=== PATIENT | female | born 1960 | race Caucasian/White ===

== ENCOUNTER 2019-03-03 05:02 | Inpatient (IN) ==
--- NOTE | 2019-02-12 09:22 | PAT Medication Instructions ---
Medication Instructions Date of Service February 12, 2019 Home Medications albuterol sulfate 1 puff INHALATION Q6H NEEDED cyanocobalamin (vitamin B-12) [Vitamin B-12] 2,500 mcg SUBLINGUAL DAILY fluticasone propionate [Flonase Allergy Relief] 2 spray INTRANASAL QAM pantoprazole [Protonix] 20 mg PO QAM DO NOT take the morning of surgery cyanocobalamin (vitamin B-12) [Vitamin B-12] 2,500 mcg SUBLINGUAL DAILY fluticasone propionate [Flonase Allergy Relief] 2 spray INTRANASAL QAM Take morning of surgery With a small sip of water, OTHERWISE NOTHING TO EAT OR DRINK AFTER MIDNIGHT: albuterol sulfate 1 puff INHALATION Q6H NEEDED (if needed; please bring to hospital) pantoprazole [Protonix] 20 mg PO QAM Take evening before surgery albuterol sulfate 1 puff INHALATION Q6H NEEDED (if needed) Other Notes If you have any questions please call us at [phone] or [phone] or [phone] or [phone]
--- NOTE | 2019-02-12 09:43 | Anesthesiology Consultation ---
Date of Service February 12, 2019 Assessment & Plan (1) Encounter for pre-operative examination: - No previous anesthesia records available Chart Review Chart Review: Acceptable Risk for Surgery (Cleared pending confirmed EKG. ) and Patient seen in Pre Admission Testing Consults Requested none Teaching & Discussion Pre-Anesthesia Teaching/Discussion Notes: Instructed NPO after midnight before surgery, except medications with 15 cc of water. Medication instructions provided according to the PAT guidelines. History Surgery Operation Date: 03/03/19 08:55 Proposed Procedures p Right Total Knee Arthroplasty - Collni Jacobs MD Height/Weight Height: 5 ft 1 in Weight: 55 kg Allergies Allergy/AdvReac Type Severity Reaction Status Date / Time Penicillins Allergy Unknown Rash Verified 02/01/19 08:36 clindamycin Allergy CHEST Verified 02/01/19 08:36 TIGHTNESS nickel Allergy VISION Verified 02/01/19 08:37 DISTURBANCES titanium Allergy PRESSURE Verified 02/01/19 08:39 IN FACE AND EYE Medications Home Medications Medication Instructions Recorded Confirmed Last Taken albuterol sulfate 1 puff INHALATION Q6H PRN 02/01/19 02/01/19 Unknown cyanocobalamin (vitamin B-12) 2,500 mcg SUBLINGUAL DAILY 02/01/19 02/01/19 Unknown [Vitamin B-12] fluticasone propionate [Flonase 2 spray INTRANASAL QAM 02/01/19 02/01/19 Unknown Allergy Relief] pantoprazole [Protonix] 20 mg PO QAM 02/01/19 02/01/19 Unknown Past Medical History Medical History Asthma TRIGGERED BY SEASONAL GERD (gastroesophageal reflux disease) H/O wisdom tooth extraction Osteoarthritis Seasonal allergies Exercise / Class Metabolic Activity II 4-5 Yardwork/Stairs/Walk up hill (Very active. Able to climb FOS. Denies CP or SOB. ) Past Surgical History Surgical History H/O blepharoplasty H/O colonoscopy History of esophagogastroduodenoscopy (EGD) History of partial hysterectomy History of suburethral sling procedure Hx of left cataract extraction Hx of repair of left rotator cuff Hx of repair of right rotator cuff Hx of right cataract extraction Nausea and vomiting after administration of anesthetic agent Past Anesthesia History No Hx of Anesthesia Complications and No Family Hx of Anesthesia Complications History of PONV History of PONV and Hx of Motion Sickness (Car sickness, motion sickness) Social History Smoking Status: Never smoker Do You Dip or Chew Tobacco: No Hx Alcohol Use: Yes Alcohol type: wine alcohol intake frequency: holidays/special occasions only Hx Substance Use: No Review of Systems Patient denies chest pain, shortness of breath, dyspnea on exertion, cough, wheezing, palpitations. +Joint Pain (Knee) +Acid Reflux (controlled with current medications) Physical Exam Vital Signs BP: 96/65 P: 77 R: 16 T: 98.1 SPO2: 97% on RA ENMT Thyromental Distance: > or= 3.5 Finger Breadths (3.5) Mallampati Class: I Neck normal visual inspection and trachea midline; neck extension not limited Respiratory normal respiratory effort Auscultation: lungs clear to auscultation bilaterally Cardiovascular Rate/Rhythm: regular rate and regular rhythm Heart Sounds: no murmur Vessels: no carotid bruit Neurologic moves all extremities Psychiatric Orientation: alert and oriented x 3 Testing Laboratory Results 02/12/19 10:28 02/12/19 10:28 PT 10.4 Seconds (9.0-12.0) 02/12/19 10:28 INR 1.0 (0.9-1.1) 02/12/19 10:28 APTT 25.8 Seconds (21.0-31.0) 02/12/19 10:28 Urine Color Yellow 02/12/19 Unknown Urine Appearance Clear (Clear) 02/12/19 Unknown Urine pH 5.0 (4.5-7.5) 02/12/19 Unknown Ur Specific [place] 1.023 (1.000-1.030) 02/12/19 Unknown Urine Protein Negative (Negative) 02/12/19 Unknown Urine Glucose (UA) Negative (Negative) 02/12/19 Unknown Urine Ketones Negative (Negative) 02/12/19 Unknown Urine Nitrite Negative (Negative) 02/12/19 Unknown Ur Leukocyte Esterase Negative (Negative) 02/12/19 Unknown Blood Type A Positive 02/12/19 10:28 Antibody Screen NEGATIVE 02/12/19 10:28 Electrocardiogram Date: 02/12/19 Findings: + NSR @ (67) Chest X-Ray Date: 02/12/19 Findings: + NAD
--- NOTE | 2019-02-12 11:09 | XRay Report ---
XR chest Pre-admission PA/Lat CLINICAL HISTORY: pat preoperative evaluation COMPARISON STUDY: No previous studies for comparison. FINDINGS: The bones soft tissues and hemidiaphragms are normal. The cardiomediastinal silhouette is n ormal. The lungs are clear. The pulmonary vasculature is normal. IMPRESSION: Negative chest. The above report was generated using voice recognition software. It may contain grammatical, syntax or spelling errors. Electronically signed by: Julio C Bernard M.D. 02/12/2019 11:08 AM
[2019-02-12 12:32] LABS: Basophils # (auto) 0.02 K/uL (0-0.2); Basophils % (auto) 0.2 %; Eosinophils # (auto) 0.21 K/uL (0-0.5); Eosinophils % (auto) 1.9 %; Hematocrit (blood only) 40.5 % (37-47); Hemoglobin 13.5 g/dL (12.0-16.0); Immature Granulocytes # (auto) 0.04 K/uL (0.00-0.02); Immature Granulocytes % (auto) 0.4 %; Lymphocytes # (auto) 0.66 K/uL (1.2-3.4); Lymphocytes % (auto) 5.8 %; Mean Corpuscular Hgb Conc 33.3 g/dL (32-36); Mean Corpuscular Volume 92.7 fL (80-100); Mean Platelet Volume 9.5 fL (7.4-10.4); Monocytes # (auto) 0.79 K/uL (0.11-0.59); Neutrophils # (auto) 9.58 K/uL (1.4-6.5); Neutrophils % (auto) 84.7 %; Platelet Count 143 K/uL (130-400); RDW Coefficient of Variation 13.7 % (11.5-14.5); RDW Standard Deviation 46.3 fL (36.4-46.3); Red Blood Count 4.37 M/uL (4.2-5.4)
[2019-02-12 12:33] LABS: Appearance Urine Clear (Clear); Bilirubin Urine Negative (Negative); Blood Urine Negative (Negative); Color Urine Yellow; Glucose Urine UA Negative (Negative); Ketones Urine Negative (Negative); Leukocyte Esterase Urine Negative (Negative); Nitrite Urine Negative (Negative); Protein Urine Negative (Negative); Specific Gravity Urine 1.023 (1.000-1.030); Urobilinogen Urine Negative (Negative)
[2019-02-12 12:44] LABS: Partial Thromboplastin Time 25.8 Seconds (21.0-31.0); Prothrombin Time 10.4 Seconds (9.0-12.0)
[2019-02-12 12:54] LABS: BUN Creatinine Ratio 26.2 (10-20); Calcium 9.3 mg/dl (8.5-10.1); Est GFR (African American) 97.8; Est GFR (Non-African American) 84.4; Potassium 4.3 mmol/L (3.5-5.1)
--- NOTE | 2019-02-17 19:35 | History and Physical Report ---
DATE OF ADMISSION: 03/03/2019 CHIEF COMPLAINT: Right knee degenerative joint disease. HISTORY OF PRESENT ILLNESS: This 58-year-old white female presents to the office with complaints of right knee pain for the last 10 months. It was mild prior to that. Occasional effusions. Pain is worse with weightbearing. Her worst pain is medial. She denies any instability. No numbness or tingling. Pain is worse with weightbearing and does affect her ADLs. Preoperative imaging has been obtained. She has tried cortisone injections as well as activity modification and oral anti-inflammatories without significant improvement. PAST MEDICAL HISTORY: Significant for actinic keratosis, osteoarthritis, asthma, chronic sinus infection, and hiatal hernia. PREVIOUS SURGERIES: Hysterectomy, bilateral cataract surgery, suburethral sling 2011, bilateral rotator cuff surgeries. FAMILY HISTORY: Significant for stroke and prostate cancer. Father is living. One sister is well. SOCIAL HISTORY: The patient is . 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 No tobacco use, no ETOH use. She has 3 children. ALLERGIES: KNOWN ALLERGY TO PENICILLIN AND AMPICILLIN, WHICH CAUSED A RASH. CLARITIN CAUSED HALLUCINATION AND PARANOIA. CLINDAMYCIN CAUSED CHEST TIGHTNESS. IVP CAUSED A RASH, QUESTIONABLE ALLERGY TO NICKEL. She has had some adverse reactions to dental implants. She is scheduled for nickel testing on 02/19/2019. CURRENT MEDICATIONS: Flonase 50 mcg 1 spray in each nostril daily, Meloxicam 15 mg p.o. daily, Protonix, unknown dose daily, Restasis eyedrops daily. REVIEW OF SYSTEMS: A total of 10 systems are reviewed and are significant only for above stated conditions. PHYSICAL EXAMINATION: GENERAL: Well-developed, well-nourished middle aged white female in no acute distress. Sitting in a chair. Alert and oriented. VITAL SIGNS: Height 156 cm, weight 55 kilos, temperature 98.3 orally, BP 110/78, pulse 92, O2 sat 98% on room air. SKIN: Warm and dry with good turgor. No rashes or lesions. No ecchymosis or erythema. No intraarticular effusion. HEENT: Normocephalic, atraumatic. Eyes PERRLA, EOMI. Nares patent bilaterally without turbinate enlargement. Oropharynx without erythema or exudate. No lesions noted. Uvula midline. Oral mucosa moist. Good dentition. Fillings and caps are noted. HEART: RRR. No MGR. LUNGS: Clear to auscultation bilaterally. No crackles, rhonchi or wheezing. Good air movement. ABDOMEN: Bowel sounds present x4, soft, nontender. No organomegaly. No masses. MUSCULOSKELETAL: Right knee has no intra-articular effusion. She has full terminal extension. Flexion greater than 100 degrees. Strength is 5/5 with fairly good quad tone. She has focal discomfort with palpation over the medial joint space. No lateral joint line pain today. No defect in the patellar tendon or quadriceps tendon. Stable collateral ligaments. Ambulatory with a slightly antalgic gait. NEUROLOGIC: Cranial nerves II through XII are intact. Gross sensation is intact across the lower extremities by soft touch. Peripheral pulses are 2+. DATA: Radiographic imaging previously obtained shows narrowing of the medial joint space with subchondral sclerosis. Periarticular osteophytes are present. MRI previously obtained shows significant articular cartilage loss in the medial compartment. Bone scan also previously obtained shows medial compartment hyperactivity, especially in the proximal tibial plateau medially. IMPRESSION: Right knee degenerative joint disease. PLAN: Postoperative prescriptions for Percocet and Coumadin will be provided at discharge from the hospital. Anticipate discharge to home with home health services or outpatient services. She has an appointment to obtain NICKEL testing to see if an Oxinium implant will need to be used. Preoperative lab work, EKG, and chest x-ray have been ordered. She will see her PCP for medical clearance. She will stop her Meloxicam 5 days prior to surgery. Call with any other concerns. New radiographic images of the knee have been obtained. A prescription for a rolling walker has been provided. Informed written consent to proceed with right knee total knee arthroplasty will be obtained in the morning of surgery. IRVIN
[2019-03-03] MEDS ORDERED: CEFAZOLIN 2000MG 2,000 MG/15 ML SYR IV SCH (06:00)
[2019-03-03] MEDS ORDERED: TRANEXAMIC ACID 1,000 MG **IV Pre-op IV SCH (06:00)
[2019-03-03] MEDS ORDERED: SCOPOLAMINE 1.5 MG TDSY TD SCH (06:00)
[2019-03-03] MEDS ORDERED: LR 60ML/HR IV SCH (06:00)
[2019-03-03] MEDS ORDERED: ROPIVACAINE 0.5% HCL/PF 150 MG, BUPIVACAINE 0.5% MPF 30 ML, EPINEPHrine 0.15 MG, Ketoro... INFIL SCH (06:00)
[2019-03-03] MEDS ORDERED: LR 500ML BOLUS, THEN 15ML/HR IV SCH (06:00)
[2019-03-03] MEDS ORDERED: BUPIVACAINE 0.5 % 5 MG/1 ML PF 10ML VIAL ONE (06:29)
[2019-03-03] MEDS ORDERED: BUPIVACAINE 0.25% 30 ML VIAL ONE (06:29)
[2019-03-03] MEDS ORDERED: ePHEDrine sulfate 50 MG/ML AMP IV PRN (06:31)
[2019-03-03] MEDS ORDERED: ATROPINE SULFATE 0.1 MG/ML 10ML SYR IV PRN (06:31)
[2019-03-03] MEDS ORDERED: ONDANSETRON INJ 2 MG/ML 2 ML VIAL IV PRN ×2 (06:31→09:38)
[2019-03-03] MEDS ORDERED: PROMETHAZINE HCL 12.5 MG in SODIUM CHLORIDE 0.9% 50 ML IV PRN (06:31)
[2019-03-03] MEDS ORDERED: ORTHO JOINT ANESTHETIC ONE (06:36)
--- NOTE | 2019-03-03 06:38 | History & Physical Bridge Note ---
Date of Service March 03, 2019 History & Physical Bridge Note I have examined the patient, reviewed the History & Physical and in the interval since the performance of the History & Physical I have noted the following changes of clinical significance:consent obtained. no changes noted
[2019-03-03] MEDS ORDERED: fentaNYL citrate 100 MCG/2 ML VIAL ONE ×2 (06:42→08:15)
[2019-03-03] MEDS ORDERED: LIDOCAINE HCL 2% 2 ML VIAL/AMP(20MG/ML) INFIL ONE (06:42)
[2019-03-03] MEDS ORDERED: PROPOFOL IV EMULSION 10 MG/ML 20 ML VIAL IV ONE (06:42)
[2019-03-03] MEDS ORDERED: MIDAZOLAM HCL 1 MG/ML 2ML VIAL ONE (06:42)
[2019-03-03] MEDS ORDERED: ePHEDrine sulfate 50 MG/ML SYR ONE (07:31)
[2019-03-03] MEDS ORDERED: PHENYLEPHRINE 100MCG/ML 5ML SYR ONE (07:31)
--- NOTE | 2019-03-03 08:25 | Post Operative Brief Note ---
Immediate Post Op Note v1 Date of Surgery March 03, 2019 Pre & Post Diagnosis Operation Date: 03/03/19 07:00 Pre-Op Diagnosis: Right Knee Degenerative Joint Disease Post-Op Diagnosis: Right Knee Degenerative Joint Disease Procedure Operation Date: 03/03/19 07:00 Actual Procedures p Right Total Knee Arthroplasty(Right) - Collin Jacobs MD Surgeon Collin Jacobs MD Marine Insulator yazan hall Estimated Blood Loss 25 Findings Consistent with Post-Op Diagnosis
--- NOTE | 2019-03-03 08:39 | Operative Report ---
Post Operative Report Pre & Post Diagnosis Operation Date: 03/03/19 07:00 Pre-Op Diagnosis: Right Knee Degenerative Joint Disease Post-Op Diagnosis: Right Knee Degenerative Joint Disease Procedure Operation Date: 03/03/19 07:00 Actual Procedures p Right Total Knee Arthroplasty(Right) - Collin Jacobs MD Surgeon TAMI Jacobs MD Alterations Workroom Clerk yazan hall Estimated Blood Loss 25 Findings Consistent with Post-Op Diagnosis Specimens see operative report Drains none Complications none Disposition Accompanied Patient To Recovery: Yes Disposition: Recovery Room Indications This 58-year-old white female presented to the office with complaints of intractable medial right knee pain. Symptoms have been persistent despite conservative care measures. She elected to proceed with surgical intervention after being educated about potential risks and outcomes. Preoperative imaging was obtained. Description of Procedure Patient was administered a regional anesthetic and then taken to the operating room where she was given general anesthesia. She was prepped and draped in the usual sterile fashion. Please see Dr. Jacobs's operative report for specifics of the procedure. I was present for the entire case from initial patient positioning through final wound closure. Assistance was provided in tissue retraction, hemostasis, trial implant placement, final implant placement, and final wound closure. Patient was taken to the recovery room in satisfactory condition. I attest to the content of the Intraoperative Record and any orders documented therein. Any exceptions are noted below.
--- NOTE | 2019-03-03 08:41 | Operative Report ---
Post Operative Report Pre & Post Diagnosis Operation Date: 03/03/19 07:00 Pre-Op Diagnosis: Right Knee Degenerative Joint Disease Post-Op Diagnosis: Right Knee Degenerative Joint Disease Procedure Operation Date: 03/03/19 07:00 Actual Procedures p Right Total Knee Arthroplasty(Right) - Collin Jacobs MD Surgeon Collin Jacobs MD Dental Appliance Repairer yazan hall Estimated Blood Loss 25 Findings Consistent with Post-Op Diagnosis Specimens None Complications none Disposition Accompanied Patient To Recovery: Yes Disposition: Recovery Room Indications 58/M with end stage R knee arthritis decided to go for TKR after failing to improve with conservative measures Description of Procedure Supine position under tourniquet. Standard prep and drape R lower extremity. Time out for safety followed by total knee arthroplasty. Please see Dr Jacobs's procedure notes for specific details. I was present through out the case and assisted for closure and dressing. Patient was transferred to PACU in stable condition I attest to the content of the Intraoperative Record and any orders documented therein. Any exceptions are noted below.
--- NOTE | 2019-03-03 08:48 | Operative Report ---
DATE OF OPERATION: 03/03/2019 SURGEON: Collin Jacobs MD PATENT LAW SPECIALIST: Jj. SECOND CUSTOMER SUPPORT ANALYST: Art Morelos PA-C PREOPERATIVE DIAGNOSIS: Osteoarthritis with varus deformity, grade 4 disease, medial compartment. POSTOPERATIVE DIAGNOSIS: Osteoarthritis with varus deformity, grade 4 disease, medial compartment. OPERATION PERFORMED: Cemented right total knee replacement. PERIOPERATIVE SITUATION: Medically cleared female with intractable knee pain, has failed conservative management for years including injections of both steroid and viscosupplementation. At this point in time, she has pain with every step and has pain at times while being seated and sleeping and is requesting total knee replacement. She understands that there is no guarantee and that this may not eliminate every ache and pain in her knee. DESCRIPTION OF PROCEDURE: The patient was appropriately identified, site verified, consent verified. Antibiotics confirmed as being given. The right lower extremity was prepped and draped in usual routine fashion. Tourniquet inflated to 275 mmHg after exsanguination of limb with a rubber Esmarch bandage for a total of 51 minutes. The midline exposure was utilized. Parapatellar arthrotomy performed. Synovectomy completed. There was grade 4 disease over the entire medial femoral condyle and the anterior 50% of the medial tibial plateau. Ligaments were intact. Appropriate exposure was obtained. A synovectomy completed, soft tissue releases performed, patella was everted. The synovectomy once completed, allowed the distal femur to be exposed and a distal femoral seating hole made. Intramedullary guide seated and resection made 12 mm. The cruciates were resected. The tibia was then subluxated after the menisci were completely excised and a roughly 4 mm excised of the superior tibia. The extension gap was noted to be excellent. The tibia was sized to a size 2 and the tibia was roughly a 3, maybe and slightly more, so we were unforced based on the tibial side to use a 2-1/2 that was sized and was measured 3 cut 2.5. There was just a scant amount of anterior cortex broaching, but nothing that was severe. The flexion gap was then checked and that was excellent, so the box cut was then made. Size 2-1/2 fit well. The size 2 tibial tray was then placed, broached and reamed appropriately and the trial reduction carried out with a 10 and the 12-1/2. The 12-1/2 was definitely too tight. The 10 was perfect in extension and had excellent stability mid range and full flexion. The patella was then everted. It was also very thin. It was only roughly a 20 mm thick, so roughly 4-5 mm was resected leaving 14-15 mm and a size 35 template seated and then the seating holes made and the trial reduced. The patella tracked well. All trial implants were then removed after the Orthomix was injected posteriorly, 2 syringes in, the remaining all anteriorly. The wound was irrigated with Betadine Pulsavac and then the permanent cemented in position beginning with the tibia, followed by the femur followed by patella. After 12 minutes, the tourniquet deflated. Minor bleeding points controlled with electrocautery. EBL was 25 mL. After 14 minutes, the knee was flexed. There was no major cement removal required. Wound was irrigated with Betadine Pulsavac and then the permanent liner seated. The knee reduced and closed in about 30-40 degrees of flexion with #2 Vicryl, 2-0 Vicryl and stainless steel clips. Appropriate dressing applied. The patient transferred to recovery room in satisfactory condition having tolerated the procedure well. Pathology pending on bone resection. SUMMARY OF IMPLANTS: Size 2-1/2 right femur, posterior cruciate substituting size 2 mobile bearing tray tibia, oval dome 3 peg patella, a size 35 and tibial insert size 2.5 x 10, posterior cruciate substituting, 2 bags of Palacos G cement. Bone pathology pending. ESTIMATED BLOOD LOSS: 25 mL. CRYSTALLOID: Per anesthesia. DVT prophylaxis with Coumadin. I attest to the content of the Intraoperative Record and any orders documented therein. Any exception s are noted below.
--- NOTE | 2019-03-03 09:05 | XRay Report ---
XR knee RT 2V routine CLINICAL HISTORY: Surgical Post Op COMPARISON: Right knee radiographs February 12, 2019. FINDINGS: Alignment of the total right knee arthroplasty is anatomic. There is no periprosthetic fra cture or unexpected radiopaque foreign body. There are skin elli. IMPRESSION: Expected findings following total right knee arthroplasty. Electronically signed by: Glynn Banuelos M.D. 03/03/2019 9:04 AM
--- NOTE | 2019-03-03 09:22 | Anesthesiology Progress Note ---
Date of Service March 03, 2019 Anesthesia Post Procedure Vital Signs Vital Signs: Temp Pulse Pulse Resp BP Pulse Ox 03/03/19 09:15 36.5 C 93 H 13 107/66 100 03/03/19 09:05 96 H 13 102/56 L 98 03/03/19 08:55 101 H 15 113/63 92 03/03/19 08:45 96 H 17 117/66 100 03/03/19 08:38 36.2 C L 106 H 16 111/62 99 03/03/19 05:50 36.7 C 70 20 95/51 L 97 Transfer of Care Handoff Completed per policy Notes Mental Status: alert / awake / arousable and participated in evaluation Nausea / Vomiting: adequately controlled Pain: adequately controlled Airway Patency, RR, SpO2: stable & adequate BP & HR: stable & adequate Hydration State: stable & adequate Neuraxial Anesthesia: was administered and sensory block is resolving Anesthetic Complications: no major complications apparent and Pt Satisfied with anesthetic care Notes: Spinal was slow to set up initially and so an LMA was placed during the beginning of the case. Spinal working, but receding in PACU. Patient comfortable and denies nausea.
[2019-03-03] MEDS ORDERED: OXYCODONE HCL IR 5 MG TAB (IMMEDIATE RELEASE) PO PRN (09:38)
[2019-03-03] MEDS ORDERED: BISACODYL 10 MG SUPP PR PRN (09:38)
[2019-03-03] MEDS ORDERED: ALBUTEROL HFA 8 GM INHALER INH PRN (09:38)
[2019-03-03] MEDS ORDERED: HYDROmorphone INJ 0.5 MG/0.5 ML SYR IV PRN (09:38)
[2019-03-03] MEDS ORDERED: DiphenhydrAMINE HCL 50 MG/ML VIAL IV PRN (09:38)
[2019-03-03] MEDS ORDERED: NALOXONE HCL 0.4 MG/1 ML VIAL/CARP IV PRN (09:38)
[2019-03-03] MEDS ORDERED: SODIUM CHLORIDE 0.9% 1000ML 1,000 ML IV SCH (09:38)
[2019-03-03] MEDS ORDERED: ALUMINUM/MAGNESIUM SUSP 30 ML UDC PO PRN (09:38)
[2019-03-03] MEDS ORDERED: VANCOMYCIN CONSULT ACTIVE PRN (09:38)
[2019-03-03] MEDS ORDERED: MAGNESIUM HYDROXIDE SUSP 30 ML UDC PO PRN (09:38)
[2019-03-03] MEDS ORDERED: METOCLOPRAMIDE HCL INJ 5 MG/ML 2 ML VIAL IV PRN (09:38)
[2019-03-03] MEDS ORDERED: VANCOMYCIN HCL 1,000 MG in SODIUM CHLORIDE 0.9% 250 ML IV SCH (10:30)
[2019-03-03] MEDS: DOCUSATE SODIUM 100 MG CAP PO SCH ×2 (10:59→20:40)
[2019-03-03] MEDS: MULTIVITAMIN TAB PO SCH (11:00)
[2019-03-03] MEDS: FLUTICASONE PROPIONATE NA SPR 16 GM BTL NAE SCH (11:00)
[2019-03-03] MEDS: PANTOprazole 40 MG TAB PO SCH (11:01)
[2019-03-03] MEDS: KETOROLAC 30 MG/ML VIAL IV SCH ×3 (11:31→23:32)
[2019-03-03] MEDS ORDERED: TRAMADOL HCL 50 MG TABLET PO PRN (11:51)
[2019-03-03] MEDS ORDERED: ACETAMINOPHEN 500 MG TAB PO PRN (11:52)
--- NOTE | 2019-03-03 12:03 | Progress Note ---
DATE: 03/03/2019 SUBJECTIVE: Postop check status post right total knee replacement. The patient is doing well, has no major issues. She is sitting up in bed, she ate. She is drinking. She denies any chest pain, shortness of breath, fever, chills, nausea, vomiting or headache. OBJECTIVE: Vital signs are stable. She is afebrile. Neurovascular check femoral sciatic nerve is normal. Can actively extend and flex her toes, invert and kaitlyn the ankle, can do a straight leg raise, can bend the knee 60 degrees. Postop x-rays look excellent. ASSESSMENT: Doing well. At this point in time, she is requesting not to use any narcotic. We will place her on Ultram 50 mg tablets 1-2 p.o. q. 4 hours p.r.n. and around the clock Tylenol 1000 mg p.o. q. 6 hours p.r.n., p.r.n. Toradol. Avoid narcotics.
--- NOTE | 2019-03-03 12:27 | Discharge Summary ---
CHIEF COMPLAINT: Right knee pain. HISTORY OF PRESENT ILLNESS: The patient is a 58-year-old female admitted for elective right total knee replacement. Hospital course has been uneventful. At this point in time, she denies any review of systems problems such as chest pain, shortness of breath, fever, chills, nausea, vomiting or headache. PAST MEDICAL HISTORY: Remarkable for actinic keratosis, osteoarthritis, asthma, chronic sinus infection, hiatal hernia. PAST SURGICAL HISTORY: Previous surgeries include hysterectomy; cataract surgery; suburethral sling, bladder; rotator cuff surgeries. FAMILY HISTORY: Remarkable for stroke and prostate cancer, has a living father and a living sister. 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 No tobacco or alcohol use. She has 3 children. ALLERGIES: PENICILLIN, AMPICILLIN WHICH CAUSES A RASH, CLARITIN CAUSES HALLUCINATION AND PARANOIA, CLINDAMYCIN CAUSED CHEST TIGHTNESS, IVP DYE CAUSED A RASH. QUESTIONABLE ALLERGY TO NICKEL THAT WAS TESTED AND it was no longer valid, she is not allergic to nickel. SHE HAS HAD SOME ADVERSE REACTION TO DENTAL IMPLANTS. She does not request to use any narcotics. PREADMISSION MEDICATIONS: Include Flonase, meloxicam, Protonix, Restasis. She will continue all of her medications except the meloxicam. She will add p.r.n. tramadol for pain as well as Tylenol. She will be on Coumadin to keep INR 1.8-2.2. REVIEW OF SYSTEMS: Noncontributory. ASSESSMENT: Doing well status post right total knee replacement. Hospital course to this point has been uneventful. If she does well overnight, she will be discharged tomorrow. Discharge on 4 mg Coumadin if INR is 1.5 or less, 2 mg if 1.6-2.0 and hold if it is greater than 2.
[2019-03-03] MEDS: ORTHO WARFARIN NOMOGRAM SCH (13:07)
[2019-03-03] MEDS: ACETAMINOPHEN 500 MG TAB PO SCH ×2 (13:39→21:47)
[2019-03-03] MEDS: CEFAZOLIN 2000MG 2,000 MG/15 ML SYR IV SCH ×2 (14:18→21:47)
[2019-03-03] MEDS ORDERED: TRANEXAMIC ACID 1,000 MG in 0.9 % SODIUM CHLORIDE 100 ML IV SCH (14:41)
[2019-03-03] MEDS ORDERED: WARFARIN SOD 5 MG TAB PO SCH (16:00)
[2019-03-03] MEDS ORDERED: CHECK SCOPOLAMINE PATCH PLACEMENT SCH (16:00)
[2019-03-03] MEDS: ASCORBIC ACID 500 MG TAB PO SCH (17:59)
[2019-03-03] MEDS: FERROUS GLUCONATE 324 MG TAB PO SCH (17:59)
[2019-03-03] MEDS ORDERED: SENNA 8.6 MG TAB PO SCH (21:00)
[2019-03-04] MEDS: KETOROLAC 30 MG/ML VIAL IV SCH (05:09)
[2019-03-04] MEDS: ACETAMINOPHEN 500 MG TAB PO SCH ×2 (05:09→13:35)
[2019-03-04 06:45] LABS: Hematocrit (blood only) 34.2 % (37-47); Hemoglobin 11.7 g/dL (12.0-16.0); Mean Corpuscular Hgb Conc 34.2 g/dL (32-36); Mean Corpuscular Volume 89.3 fL (80-100); Mean Platelet Volume 9.2 fL (7.4-10.4); Platelet Count 184 K/uL (130-400); Red Blood Count 3.83 M/uL (4.2-5.4); White Blood Count 10.95 K/uL (4.8-10.8)
[2019-03-04 06:54] LABS: INR 1.2 (0.9-1.1); Prothrombin Time 11.9 Seconds (9.0-12.0)
--- NOTE | 2019-03-04 07:02 | Progress Note ---
DATE: 03/04/2019 SUBJECTIVE: Status post right total knee replacement. The patient is sleeping easily. She states she has some minor low back pain based on the bed. Otherwise, has no real complaints today. She notes that her pain in her knee is well managed. There is some minor ache behind the knee when she does the heel stretch. Denies chest pain, shortness of breath, fever, chills, nausea, vomiting or headache. She did have some nausea yesterday, but it has gone now. She had no emesis. OBJECTIVE: Vital signs are stable. She is afebrile. Neurovascular check femoral sciatic nerve is normal. Can do a straight leg raise. Laboratory work is pending. ASSESSMENT AND PLAN: Doing well. Discharge to home today. Discharge on Coumadin, keep INR 1.8-2.2. Follow up in 2 weeks. Pressure dressing for a week.
[2019-03-04 07:22] LABS: BUN Creatinine Ratio 12.9 (10-20); Calcium 8.6 mg/dl (8.5-10.1); Est GFR (African American) 109.6; Est GFR (Non-African American) 94.6; Potassium 3.8 mmol/L (3.5-5.1)
--- NOTE | 2019-03-04 07:45 | Anesthesiology Progress Note ---
Date of Service March 04, 2019 Anesthesia Post Procedure Vital Signs Vital Signs: Temp Pulse Pulse Resp BP Pulse Ox 03/04/19 07:22 93/58 L 03/04/19 07:12 36.8 C 68 12 90/51 L 94 03/04/19 03:09 36.8 C 85 16 97/59 L 96 03/03/19 23:10 36.6 C 80 16 96/58 L 93 03/03/19 19:50 36.4 C L 92 H 18 94/54 L 92 03/03/19 15:12 36.3 C L 75 17 103/57 L 91 03/03/19 12:25 86 18 106/70 99 03/03/19 11:25 81 18 91/53 L 98 03/03/19 10:23 86 18 90/60 L 97 03/03/19 09:55 86 18 97/63 L 97 03/03/19 09:25 36.4 C L 80 16 111/70 93 03/03/19 09:15 36.5 C 93 H 13 107/66 100 03/03/19 09:05 96 H 13 102/56 L 98 03/03/19 08:55 101 H 15 113/63 92 03/03/19 08:45 96 H 17 117/66 100 03/03/19 08:38 36.2 C L 106 H 16 111/62 99 Pain Intensity Right Leg: Pain Intensity: 0 Notes Mental Status: alert / awake / arousable and participated in evaluation Patient Amnestic to Procedure: Yes Nausea / Vomiting: adequately controlled Pain: adequately controlled Airway Patency, RR, SpO2: stable & adequate BP & HR: stable & adequate Hydration State: stable & adequate Anesthetic Complications: no major complications apparent
[2019-03-04] MEDS ORDERED: dexAMETHasone 10 MG in SYRINGE 0 ML IV SCH (08:00)
[2019-03-04] MEDS: DOCUSATE SODIUM 100 MG CAP PO SCH (08:46)
[2019-03-04] MEDS: MULTIVITAMIN TAB PO SCH (08:47)
[2019-03-04] MEDS: FERROUS GLUCONATE 324 MG TAB PO SCH (08:47)
[2019-03-04] MEDS: PANTOprazole 40 MG TAB PO SCH ×2 (08:48→09:59)
[2019-03-04] MEDS: FLUTICASONE PROPIONATE NA SPR 16 GM BTL NAE SCH ×2 (08:48→08:50)
[2019-03-04] MEDS: ASCORBIC ACID 500 MG TAB PO SCH (08:49)
--- NOTE | 2019-03-04 09:17 | Orthopedic Progress Note ---
Date of Service March 04, 2019 Assessment & Plan (1) Status post total right knee replacement: s/p rtkr 03-03-[address] Jacobs doing well 1)dressings changed to compressive dressings 2)continue ice for pain and swelling 3)continue elevation for swelling 4)continue DVT prophylaxis with lilian hose and coumadin 5)continue PT/OT. WBAT with walker. knee immobilizer when ambulating for another 24hrs then d/c. 6)Plan to be discharged home with home health nursing for dressing changes and to check INR levels biweekly. Goal INR 1.8 to 2.2. 7) f/u as scheduled with our office in 2wks for staple removal. Present on Admission?: Yes Subjective Patient sitting up in bed watching tv. Says she is ready to go home. Tolerating PO pain medication with pain controlled. Tolerating regular diet. Able to void. No B/M yet. Denies CP, abdominal pain, SOB, f/c/s, lightheadedness, or dizziness. Dr Jacobs saw her this AM and deemed her stable to go home with home health nursing. Physical Exam Physical Exam: Right knee dressings removed. Dry blood. No active drainage. No significant redness or warmth or bruising. Christine intact. Quad intact, able to peform SLR. 1+ edema R LE. B LE 5/5 EHL, TA, gastroc. Sensation intact to light touch. Brisk capillary refill. Palpable DP and PT pulses. Neg homans, calves soft. Results & Data Vital Signs (Past 12 Hours) Vital Signs Temp Pulse Resp BP Pulse Ox 03/04/19 07:30 98/53 L 03/04/19 07:22 93/58 L 03/04/19 07:12 36.8 C 68 12 90/51 L 94 03/04/19 03:09 36.8 C 85 16 97/59 L 96 03/03/19 23:10 36.6 C 80 16 96/58 L 93 Laboratory Results 03/04/19 03/04/19 03/04/19 Range/Units 06:21 06:21 06:21 WBC 10.95 H (4.8-10.8) K/uL RBC 3.83 L (4.2-5.4) M/uL Hgb 11.7 L (12.0-16.0) g/dL Hct 34.2 L (37-47) % MCV 89.3 (80-100) fL MCH 30.5 (25-34) pg MCHC 34.2 (32-36) g/dL RDW Std Deviation 42.0 (36.4-46.3) fL RDW Coeff of Miguel 13.0 (11.5-14.5) % Plt Count 184 (130-400) K/uL MPV 9.2 (7.4-10.4) fL PT 11.9 (9.0-12.0) Seconds INR 1.2 H (0.9-1.1) Sodium 144 (136-145) mmol/L Potassium 3.8 (3.5-5.1) mmol/L Chloride 112 H (98-107) mmol/L Carbon Dioxide 28 (21-32) mmol/L Anion Gap 4.0 (3-11) BUN 9 (7-18) mg/dl Creatinine 0.71 (0.6-1.2) mg/dl Est Cr Clr Drug Dosing 66.0 ml/min Est GFR ( Amer) 109.6 Est GFR (Non-Af Amer) 94.6 BUN/Creatinine Ratio 12.9 (10-20) Glucose 112 H (70-99) mg/dl Calcium 8.6 (8.5-10.1) mg/dl
[2019-03-04] MEDS: ORTHO WARFARIN NOMOGRAM SCH (10:29)
[2019-03-04] MEDS ORDERED: WARFARIN SOD 5 MG TAB PO SCH (16:00)
== END 2019-03-04 15:52 | disposition home health service (06) | DRG 470 ==
LOC: ASU 05:02 → 3E 08:46